=== PATIENT | male | born 1960 | race Caucasian/White ===

== ENCOUNTER 2017-02-11 08:52 | Emergency (ER) | payer OTHER ==
[~2017-02-11] VITALS: Ht 172.7 cm; Wt 80.0 kg
[~2017-02-11 08:52] MED LIST: IBUP800T25 PO; NAPR-260 PO
[2017-02-11 09:24] VITALS: Ht 172.7 cm; Wt 80.0 kg
[2017-02-11] MEDS ORDERED: KETOROLAC 30 MG INJ IM STA (10:31)
--- NOTE | 2017-02-11 11:23 | RADRPT ---
PROCEDURE: XR Wrist. CLINICAL INDICATION: Right wrist pain and trauma. TECHNIQUE: AP, bilateral oblique, scaphoid and lateral views of the right wrist were performed. COMPARISON: No prior studies are available for comparison. FINDINGS: Subtle calcification is identified along the medial aspect of the base of the fifth metacarpal. The remaining osseous structures appear intact. No destructive bony lesions are identified. Interosseo us spaces are normal. Soft tissues surrounding the wrist are unremarkable. IMPRESSION: Small calcification along the lateral aspect of the base of the fifth metacarpal. This could reflect a focal avulsion fracture versus heterotopic calcification or potentially ligamentous calcification . Correlation with mechanism of injury and for pain at this location is recommended. If further meche acterization is needed CT or MRI can be considered. If there is high clinical suspicion for additional traumatic injury, further evaluation with CT shou ld be considered. RPTAT: AA .Arjun Ch MD, Date Time Electronically viewed and signed by .Arjun Ch MD, on 02/11/2017 11:10 .P/
[2017-02-11] MEDS ORDERED: IBUP800T25 PO (11:49)
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
== END 2017-02-11 11:54 | disposition home or self-care (01) ==
LOC: FTE 08:52
DX: M25.531 Pain in right wrist (principal); M54.5 Low back pain
CPT/HCPCS: 29125; 73110; 96372; J1885; Z7502

== ENCOUNTER 2017-03-02 08:29 | Emergency (ER) | payer OTHER ==
[~2017-03-02] VITALS: Ht 160 cm; Wt 80.0 kg
[2017-03-02 08:32] VITALS: Ht 160 cm; Wt 80.0 kg
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
[2017-03-02] MEDS ORDERED: KETOROLAC 30 MG INJ IM STA (10:25)
[2017-03-02] MEDS ORDERED: IBUP400T22 PO (10:48)
[2017-03-02 11:02] VITALS: BP 145/78; PULSE 78; RESP 19; TEMP 98.2
== END 2017-03-02 11:04 | disposition home or self-care (01) ==
LOC: FTE 08:29
DX: S69.91XD Unspecified injury of right wrist, hand and finger(s), subsequent encounter (principal); X58.XXXD Exposure to other specified factors, subsequent encounter
CPT/HCPCS: 73110; J1885; Z7502; 99283

== ENCOUNTER 2017-03-09 08:59 | Emergency (ER) | payer OTHER ==
[~2017-03-09] VITALS: Ht 160 cm; Wt 79.0 kg
[~2017-03-09 08:59] MED LIST changes: +IBUP400T22 PO
[2017-03-09 09:00] VITALS: Ht 160 cm; Wt 79.0 kg
--- NOTE | 2017-03-09 09:53 | ERD ---
ER Documentation Chief Complaint Date/Time DATE: 03/09/17 TIME: 09:45 Chief Complaint 3erd visit c/o same right wrist pain HPI 56-year-old male complaining of right wrist pain. He was seen here on 02/11/2017 , and 03/02/2017 for the same wrist pain. Stated that he is went to see his PCP , but his PCP is not giving him the referral to Ortho. He came here today wanting to get another x-ray of his right wrist. Patient also wants a Toradol shot for his chronic back pain today. ROS All systems reviewed and are negative except as per history of present illness. Medications Home Meds Active Scripts Ibuprofen* (Motrin*) 400 Mg Tab, 400 MG PO Q6, #30 TAB Prov:BUDDY GARSIA PA-C 03/02/17 Ibuprofen* (Motrin*) 800 Mg Tab, 800 MG PO Q8 Y for PAIN AND OR ELEVATED TEMP, # 30 TAB Prov:CELESTINE CUNNINGHAM NP 02/11/17 Naproxen* (Naprosyn*) 500 Mg Tablet, 500 MG PO BID for PAIN, #30 TAB Prov:MEGAN LLOYD 11/22/15 Naproxen* (Naprosyn*) 500 Mg Tablet, 500 MG PO BID Y for PAIN AND/OR INFLAMMATION, #30 TAB Prov:MAGDA GUERIN NP 07/02/15 Ibuprofen* (Motrin*) 800 Mg Tab, 800 MG PO Q8, #30 TAB Prov:JORJE SOLIS DO 05/06/15 Allergies Allergies: Coded Allergies: No Known Allergy (Unverified , 07/02/15) PMhx/Soc Medical and Surgical Hx: pt denies Surgical Hx History of Surgery: No Anesthesia Reaction: No Hx Neurological Disorder: No Hx Cardiac Disorders: No Hx Psychiatric Problems: No Hx Alcohol Use: Yes (every other day) Hx Substance Use: Yes (MARIJUANA, METH, COCAINE) Hx Tobacco Use: Yes Smoking Status: Current every day smoker Physical Exam Vitals Vital Signs Date Time Temp Pulse Resp B/P Pulse Ox O2 Delivery O2 Flow Rate FiO2 03/09/17 09:00 98.1 90 18 160/70 99 Physical Exam General: Well-developed, well-nourished, conscious and coherent, in no distress Skin: Warm and dry without rash, good texture and turgor Head: Normocephalic without evidence of trauma Eyes: Sclera and conjunctivae normal; pupils equal, round, and reactive to light; extraocular movements are intact Chest: Normal AP diameter. Good expansion without retractions. Nontender. Lungs are clear to auscultate bilaterally with good tidal volume Heart: Regular rate and rhythm. No murmur, rub, or gallops heard Back: No midline tenderness. Extremities: Full range of motion. Good strength bilaterally. No clubbing, cyanosis, or edema. Peripheral pulses are intact. Sensation intact. Medial aspect ventral right wrist mildly tender. Neuro: Alert and oriented 4, GCS 15. Cranial nerves grossly intact. Motor and sensory exams nonfocal. Moves all extremities. Speech clear. Gait normal Procedures/MDM Well-appearing 56-year-old male in the ED for the right wrist pain. This is his third visit 1 month. X-ray of the right wrist was obtained on both previous visits. A well-corticated fragment proximal to fifth metacarpal base were seen on both x-rays, with no interval changes. Radiologist states that is likely due to remote trauma. This does not correlate to patient's location of pain. Patient has normal passive range of motion of the right wrist. I doubt that he has wrist fracture. Patient was given thumb spica splint on his previous visit, he stated that in make him feel better than the Velcro wrist splint. A new thumb spica splint is provided for the patient. Patient was noted to be comfortable and neurovascularly intact both before and after the immobilization. Again I educated the patient that need to follow-up with Orthopedist. He will need a referral from his PCP. If he is currently CT does not provide the referral, he may change his primary provider and get a referral that way. As for his requests Toradol for back pain, I advised him that the pain is chronic, he cannot come to the ED repeatedly for pain management. Again, I advised him to follow-up with his PCP. Patient does not have any midline spinal tenderness. I doubt spinal fracture, subluxation, or disc herniation. I doubt spinal epidural abscess, cauda equina syndrome. Patient appears well, stable for discharge and outpatient management. Medical decision making shared with patient and family. Education provided to patient and family. Patient and family expressed understanding of the plan. Medications on discharge: None. Follow-up: Primary care provider in 2-3 days or return to ED if worse. Disclaimer: Inadvertent spelling and grammatical errors are likely due to EHR/ dictation software use and do not reflect on the overall quality of patient care. Also, please note that the electronic time recorded on this note does not necessarily reflect the actual time of the patient encounter. Departure Diagnosis: Primary Impression: Wrist injury Encounter type: subsequent encounter Laterality: right Qualified Code: S69.91XD - Injury of right wrist, subsequent encounter Condition: Stable Patient Instructions: Wrist Sprain Referrals: [facility] (PCP) [facility] YOU HAVE RECEIVED A MEDICAL SCREENING EXAM AND THE RESULTS INDICATE THAT YOU DO NOT HAVE A CONDITION THAT REQUIRES URGENT TREATMENT IN THE EMERGENCY DEPARTMENT. FURTHER EVALUATION AND TREATMENT OF YOUR CONDITION CAN WAIT UNTIL YOU ARE SEEN IN YOUR DOCTORS OFFICE WITHIN THE NEXT 1-2 DAYS. IT IS YOUR RESPONSIBILITY TO MAKE AN APPOINTMENT FOR FOLOW-UP CARE. IF YOU HAVE A PRIMARY DOCTOR --you should call your primary doctor and schedule an appointment IF YOU DO NOT HAVE A PRIMARY DOCTOR YOU CAN CALL OUR PHYSICIAN REFERRAL HOTLINE AT IF YOU CAN NOT AFFORD TO SEE A PHYSICIAN YOU CAN CHOSE FROM THE FOLLOWING [facility] [address]. [facility] [address] [facility] [facility] [facility] [address] [facility] [facility] [address] [facility] [facility] [address] [facility] [facility]. [address] Additional Instructions: You need to have orthopedic follow-up. Please ask your primary provider for a referral. CELESTINE CUNNINGHAM NP Mar 09, 2017 09:53
== END 2017-03-09 10:11 | disposition home or self-care (01) ==
LOC: FTE 08:59
DX: S69.91XD Unspecified injury of right wrist, hand and finger(s), subsequent encounter (principal); F17.210 Nicotine dependence, cigarettes, uncomplicated; X58.XXXD Exposure to other specified factors, subsequent encounter
CPT/HCPCS: 99282

== ENCOUNTER 2017-08-09 10:25 | Emergency (ER) | END 2017-08-09 12:45 | disposition left against medical advice (07) ==

== ENCOUNTER 2017-08-31 03:01 | Emergency (ER) | END 2017-08-31 03:55 | disposition home or self-care (01) ==

== ENCOUNTER 2018-03-11 07:50 | Emergency (ER) | END 2018-03-11 09:11 | disposition home or self-care (01) ==

== ENCOUNTER 2019-03-19 07:12 | Emergency (ER) | payer OTHER ==
[~2019-03-19] VITALS: Ht 172.7 cm; Wt 84.5 kg
[~2019-03-19 07:12] MED LIST changes: +CYCL10TA7 PO; +GABA300C16 PO; +HYDR-4011 PO; +IBUP-1542 PO; +IBUP-1561 PO; -IBUP400T22 PO; -IBUP800T25 PO; +IBUP800T48 PO; +MED4DP PO; +MELO7.5T38 PO; -NAPR-260 PO; +NAPR-985 PO; +NPH10OT LEFT EAR
[2019-03-19 07:15] VITALS: BP 176/89; PULSE 101; RESP 18; Ht 172.7 cm; Wt 84.5 kg
[2019-03-19] MEDS ORDERED: KETOROLAC 60 MG INJ IM STA (07:28)
[2019-03-19] MEDS ORDERED: DEXAMETHASONE 10 MG/ML 1 ML INJ IM ONE (07:30)
== END 2019-03-19 08:21 | disposition left against medical advice (07) ==
LOC: FTE 07:12
DX: M54.5 Low back pain (principal); F17.210 Nicotine dependence, cigarettes, uncomplicated
CPT/HCPCS: J1100; J1885; 96372